=== PATIENT | female | born 1970 | race Caucasian/White ===

== ENCOUNTER 2024-02-18 17:54 | Observation (INO) | payer OTHER, SELFPAY ==
[2024-02-18 17:55] VITALS: BP 143/93; PULSE 67; RESP 18; TEMP 36.2; O2SAT 98; BMI 31.5
--- NOTE | 2024-02-18 18:20 | RAD_ITS ---
INDICATION: chest pain EXAMINATION/TECHNIQUE: X-RAY - XR Chest 1 View COMPARISON: No previous relevant examinations available for comparison.. FINDINGS: LIFE-SUPPORT AND LINES: 1. None HEART AND VESSELS: The cardiac silhouette, pulmonary vasculature have normal appearance. No evidence of congestive failure. LUNGS AND PLEURAL SPACES: Lungs are clear. No focal infiltrate, consolidation or effusions. No evidence of pneumothorax. No pulmonary mass is noted. MEDIASTINUM AND HILAR REGIONS: No masses adenopathy noted. No areas of calcification. Visualized upper airway is normal in position. BONY ELEMENTS: No acute bony changes noted. RAD/Chest 1 View (Portable) IMPRESSION: 1. No evidence of acute cardiopulmonary process Electronically Signed: Feliz Ji MD at 20:00 EDT ,
--- NOTE | 2024-02-18 18:20 | EKG12_ITS ---
Test Reason : CP Blood Pressure : / mmHG Vent. Rate : 064 BPM Atrial Rate : 064 BPM P-R Int : 168 ms QRS Dur : 080 ms QT Int : 432 ms P-R-T Axes : 063 053 046 degrees QTc Int : 445 ms Normal sinus rhythm with sinus arrhythmia Normal ECG Confirmed by Timur Barber ([id number]), newspaper editor managing CHIDI DON ([id number]) on 02/20/2024 6:31:19 AM Referred By: Confirmed By:Timur Barber
--- NOTE | 2024-02-18 18:21 | EDS_ITS ---
HPI History of Present Illness Chief Complaint: Chest Pain Informant: patient and spouse/S.O. Narrative Narrative: 53-year-old female presenting to the emergency room for the evaluation of chest pain. Patient notes over the past 2 weeks she has had an intermittent pain in the chest. She states that over the past couple days it is becoming more frequent. She states that sometimes it last for 30 seconds to minutes sometimes longer. It is woken her up a couple times during the night. She states that today she tried to go for a walk with her but did not feel that she could do the hill. She notes that her father had early onset coronary artery disease in his mid 50s. She states that she does not see a primary care doctor but has seen a doctor in the past that has told her that she had high cholesterol and MTFR mutation. Patient sometimes will take aspirin. She has felt this sensation radiated up to her jaw. She notes that she has been more short of breath with exertion recently. She denies any difficulty eating or drinking. PFSH PFSH Allergy/AdvReac Type Severity Reaction Status Date / Time Penicillins Allergy Hives Verified 02/18/24 17:59 sulfamethoxazole (From Allergy Anaphylaxis Verified 02/18/24 17:59 Bactrim) trimethoprim (From Bactrim) Allergy Anaphylaxis Verified 02/18/24 17:59 Social History Smoking Status: Never smoker ROS ROS ED ROS Narrative Fatigue Constitutional Constitutional ED: Denies chills, fever(s) or weight loss Eyes Eyes: Denies change in vision or diplopia ENT ENT ED: Denies ear pain, rhinorrhea or sore throat Cardiovascular Cardiovascular: Reports chest pain; Denies orthopnea, palpitations or racing heartbeat Respiratory/Chest Respiratory/Chest: Reports dyspnea on exertion; Denies cough, dyspnea or orthopnea Gastrointestinal Gastrointestinal: Denies abdominal pain, diarrhea, nausea or vomiting Genitourinary Genitourinary ED: Denies dysuria, hematuria or urinary frequency Musculoskeletal Musculoskeletal: Denies arthralgias or myalgias Integumentary Denies abscess or rash Neurologic Neurologic: Denies headache(s) or weakness Psychiatric Psychiatric: Denies anxiety, depression, suicidal ideation or suicidal thoughts Endocrine Endocrinology: Denies polydipsia, polyphagia or polyuria Allergic/Immunologic Allergic/Immunologic ED: Denies mouth swelling, tongue swelling or urticaria EXAM Physical Exam Const Vital Signs: 02/18/24 17:55 02/18/24 18:54 02/18/24 19:00 Temperature 97.1 F L Temperature Source Temporal Pulse Rate 67 63 65 Respiratory Rate 18 12 12 Blood Pressure 143/93 H 108/73 123/70 H Blood Pressure Mean 109 84 87 Pulse Ox 98 98 97 Oxygen Delivery Method Room Air Positive well nourished and well developed General Appearance ED: well developed HEENT Reports normocephalic, head/scalp atraumatic and moist mucous membranes Eyes PERRL and EOMs intact bilaterally Neck no lymphadenopathy, supple and no JVD Resp normal respiratory effort and clear to auscultation bilaterally Cardio regular rate, regular rhythm and no murmurs GI normal to inspection, nondistended, normoactive bowel sounds and non-tender Palpation: soft Back/Spine no CVA tenderness and normal ROM Extremity normal to inspection General Extremety ED: Negative for edema General Extremity: Negative for edema Neuro oriented x3 and CN's II-XII intact bilaterally Sensorium / Orientation: alert Motor Exam: strength 5/5 throughout Psych mental status grossly normal Mood & Affect: Negative for depressed or tearful Skin no rashes or lesions noted and no wounds Heart Score History: Moderately Suspicious ECG: Normal Age: >45 - <65 years Risk Factors: 1 or 2 Risk Factors Troponin: </= Normal Limit Score: 3 MDM MDM MDM Narrative Medical decision making narrative: Differential diagnosis includes acute coronary syndrome/unstable angina pleurisy chest wall pain esophagitis/GERD I doubt pulmonary embolism as it is not a constant symptom, Aortic dissection pleural effusion My independent interpretation of the chest x-ray is no acute process. EKG is in normal sinus rhythm without ischemia/injury. Troponin is 4. Hemoglobin 12.6 normal creatinine. Patient does not have a primary care doctor they can help us with expedited outpatient stress testing. Her heart score currently is 3. My recommendation is that we observe her tonight and obtain the cardiac stress testing tomorrow. Patient and her are comfortable with this plan. History & Record Review Discussion w/independent historian: Patient and Family Lab Data Attestation: I reviewed the patient's lab results. Labs: Laboratory Results - last 24 hr 02/18/24 18:46 WBC 6.0 RBC 4.30 Hgb 12.6 Hct 38.7 MCV 90.0 MCH 29.3 MCHC 32.6 RDW Std Deviation 43.3 RDW Coeff of Li 13.1 Plt Count 281 MPV 9.2 Immature Gran % (Auto) 0.300 Neut % (Auto) 53.9 Lymph % (Auto) 36.8 [place] % (Auto) 7.4 Eos % (Auto) 1.3 Baso % (Auto) 0.3 Absolute Neuts (auto) 3.2 Absolute Lymphs (auto) 2.19 Nucleated RBC % 0 Sodium 139 Potassium 4.1 Chloride 106 Carbon Dioxide 28.0 Anion Gap 5 BUN 14 Creatinine 0.76 Estim Creat Clear Calc 88.11 Est GFR (MDRD) Af Amer 103 Est GFR (MDRD) Non-Af 85 BUN/Creatinine Ratio 18.4 Glucose 105 Calcium 9.4 Troponin I High Sens 4 EKG Initial EKG: Attestation: I personally reviewed and interpreted this EKG as follows: Comments: Normal sinus rhythm ventricular rate of 64 bpm Management Discussion w/another healthcare provider: Hospitalist Discharge Plan Triage Chief Complaint: Chest Pain ED Provider: Matthew Pacheco Dx/Rx/DC Orders Primary Care Provider: Venessa Morales Referrals: Venessa Morales MD [Primary Care Provider] - Print Language: Turkish
[2024-02-18] MEDS: Aspirin 81 MG TAB.CHEW 324 MG PO (18:28)
[2024-02-18 18:54] VITALS: BP 108/73; PULSE 63; RESP 12; O2SAT 98
[2024-02-18 18:56] LABS: Absolute Lymphocyte Count 2.19 X10^3/uL (0.83-4.51); Absolute Neutrophil Count 3.2 X10^3/uL (2.0-7.7); Basophil# 0.02 X10^3/uL; Basophil% 0.3 % (0-1); Eosinophil# 0.08 X10^3/uL; Eosinophils% 1.3 % (0-5); Hematocrit 38.7 % (37-47); Hemoglobin 12.6 g/dL (12.0-15.0); Lymphocyte # 2.19 X10^3/ul (0.83-4.51); Lymphocyte % 36.8 % (19-41); Mean Corp Hgb Conc 32.6 g/dL (32-36); Mean Corpuscular Hgb 29.3 pg (27.0-32.0); Mean Platelet Vol. 9.2 fl (6.2-12.0); Monocyte# 0.44 X10^3/uL; Monocyte% 7.4 % (0-10); NRBC Flagged by Analyzer 0 % (0-5); Neutrophil % 53.9 % (47-70); Platelet Count 281 K/mm3 (150-450); RBC Distribution Width CV 13.1 % (11.6-14.6); RBC Distribution Width SD 43.3 fl (35.1-43.9)
[2024-02-18 19:00] VITALS: BP 123/70; PULSE 65; RESP 12; O2SAT 97
[2024-02-18 19:19] LABS: Anion Gap 5 (5-15); BUN 14 mg/dL (7-18); BUN/Creat Ratio 18.4 RATIO (10-20); Calcium,Total 9.4 mg/dL (8.5-10.1); Chloride 106 mmol/L (98-107); Creatinine, Serum 0.76 mg/dL (0.55-1.02); EST Glomerular Filtration Rate 85 mL/min (>60); Est Glom Filt Rate - Afr Amer 103 mL/min (>60); Estimated Creatinine Clearance 88.11 ml/min; Glucose 105 mg/dL (74-106); Potassium 4.1 mmol/L (3.5-5.1); Sodium Level 139 mmol/L (136-145); Troponin-I HS (w/2H Reflex) 4 pg/mL (3.0-54.0)
[2024-02-18 19:47] VITALS: BP 116/95; PULSE 63; RESP 14; TEMP 36.9; O2SAT 97
--- NOTE | 2024-02-18 19:58 | HP.PCM.HOS_ITS ---
HPI - General General Date of Service: 02/18/24 Chief Complaint: Chest Pain. HPI Narrative FREDDIE BLACKMON, is a 53 F with a past medical history of obesity; with BMI of 31.5 this admission, history of hyperlipidemia, history of MTHFR mutation, listed allergy to PCN (hives) and Bactrim (anaphylaxis), positive family history of premature CAD; in her father who had a CABG in his 50's and history of migraine headaches who presents to [facility] ER complaining of chest pain. Mrs. Blackmon reports her symptoms began approximately two weeks prior to admission with chest pain that begins at rest, ~3/10, substernal, pressure-like, lasting 30 seconds to ~5 minutes, radiating up into her jaw and was initially intermittent - but becoming more frequent over the past few days. She also admits to being woken up in the middle of the night with chest pain a few times. Earlier today she tried to go for a walk with her but she felt like she could not exert herself walking up a small hill because of concerns about triggering a return of her chest pain as she has also begun to have easier BASS that is new and concerning. She does admit to taking ECASA but it did not help with her symptoms. She does not have a PCP at this time. She denies associated fever, chills, nausea, vomiting, diaphoresis, palpitations, dysphagia, headache, recent trauma, recent illness or recent medication changes. In the ER she was noted to have a normal troponin and a nonspecific EKG and she was then admitted to the PCU under observation status for ongoing care for a stay that is expected to be less than 48 hours. PFSH Allergy/AdvReac Type Severity Reaction Status Date / Time Penicillins Allergy Hives Verified 02/18/24 17:59 sulfamethoxazole (From Allergy Anaphylaxis Verified 02/18/24 17:59 Bactrim) trimethoprim (From Bactrim) Allergy Anaphylaxis Verified 02/18/24 17:59 Social History Smoking Status: Never smoker ROS ROS Narrative Review of Systems: General: Patient denies fever or chills. HENT: Denies headache, denies stuffy nose, denies sore throat EYES: Denies changes in vision or discharge from eyes. Resp: Denies cough, denies shortness of breath Cardiac: Patient admits to chest pain radiating up into her Right jaw as per HPI. GI: Denies abdominal pain, denies changes in bowel, denies nausea or vomiting. : Denies changes in urination Extremity: Denies swelling Musculoskeletal: Feels somewhat generally weak and unwell but she denies arthralgias and myalgias. Neuro: Patient denies headache, paresthesias or focal neurologic deficits. Heme: Denies any bleeding or bruising Skin: Denies rashes Psychiatric: No complaints voiced related to uncontrolled depression or anxiety. Endocrine: No polyuria, polydipsia or polyphagia. The rest of the 14 point ROS was negative except for positives in HPI. Vital Signs Vital Signs Vital Signs: 02/18/24 17:55 02/18/24 18:54 02/18/24 19:00 Temperature 97.1 F L Temperature Source Temporal Pulse Rate 67 63 65 Respiratory Rate 18 12 12 Blood Pressure 143/93 H 108/73 123/70 H Blood Pressure Mean 109 84 87 Pulse Ox 98 98 97 Oxygen Delivery Method Room Air 02/18/24 19:47 Temperature 98.5 F Temperature Source Pulse Rate 63 Respiratory Rate 14 Blood Pressure 116/95 H Blood Pressure Mean 102 Pulse Ox 97 Oxygen Delivery Method Weight Weight: 178 lb Body Mass Index (BMI) 31.5 Physical Exam Const alert, oriented x3, no apparent distress, average body habitus and healthy appearing General Appearance: cooperative HEENT normocephalic, head/scalp atraumatic, hearing grossly normal bilaterally and moist oral mucous membranes Eyes PERRL and EOMs intact bilaterally Neck no lymphadenopathy and supple Resp normal respiratory effort, no retractions, no use of accessory muscles and clear to auscultation bilaterally Cardio regular rate and regular rhythm GI normal to inspection, nondistended, normoactive bowel sounds, soft to palpation, non-tender and non-distended GI Narrative: Obese. Extremity normal to inspection, full ROM and no clubbing, cyanosis or edema Skin Skin Narrative: Patient has no evidence of jaundice, rash or abscess. Neuro oriented x3, CN's II-XII intact bilaterally, moves all extremities and no focal motor deficits Sensorium / Orientation: awake, alert, oriented to person, oriented to place and oriented to time Speech: speech normal Psych affect normal Results Medical Records Data Attestation: I reviewed the patient's medical records Lab / Micro Data Attestation: I reviewed the patient's lab results. 02/18/24 18:46 02/18/24 18:46 Labs: Laboratory Results - last 24 hr 02/18/24 18:46: WBC 6.0, RBC 4.30, Hgb 12.6, Hct 38.7, MCV 90.0, MCH 29.3, MCHC 32.6, RDW Std Deviation 43.3, RDW Coeff of Li 13.1, Plt Count 281, MPV 9.2, Immature Gran % (Auto) 0.300, Neut % (Auto) 53.9, Lymph % (Auto) 36.8, [place] % (Auto) 7.4, Eos % (Auto) 1.3, Baso % (Auto) 0.3, Absolute Neuts (auto) 3.2, Absolute Lymphs (auto) 2.19, Nucleated RBC % 0, Sodium 139, Potassium 4.1, Chloride 106, Carbon Dioxide 28.0, Anion Gap 5, BUN 14, Creatinine 0.76, Estim Creat Clear Calc 88.11, Est GFR (MDRD) Af Amer 103, Est GFR (MDRD) Non-Af 85, BUN/Creatinine Ratio 18.4, Glucose 105, Calcium 9.4, Troponin I High Sens 4 Assessment & Plan Assessment/Plan (1) Chest pain: QUALIFIERS: Chest pain type: unspecified Qualified Code(s): R07.9 - Chest pain, unspecified (2) Obesity (BMI 30.0-34.9): (3) Hyperlipidemia: QUALIFIERS: Hyperlipidemia type: unspecified Qualified Code(s): E 78.5 - Hyperlipidemia, unspecified (4) MTHFR gene mutation: (5) History of migraine: PLAN: Plan 1. Chest Pain in the setting of a known family history of premature CAD; in her father who had a CABG in his 50's - Admit to PCU under observation status. Serialize troponin. Check echocardiogram to evaluate LVEF. Check Lexiscan NST in the AM to evaluate for ischemia. Continue ECASA and prn SL NTG. Give Morphine IV prn for severe (level 6-10/10) pain. Give Tylenol prn for [id number] (level 1-5/10) pain or fever. 2. Obesity; with BMI of 31.5 this admission complicating #1 - Weight loss will be recommended. Check TSH. 3. History of hyperlipidemia - Check Lipid Profile. 4. History of MTFR mutation - Noted. 5. Listed allergy to PCN (hives) and Bactrim (anaphylaxis) - Noted. We will avoid these classses of agents. 6. History of migraine headaches - Stable with no complaints of headache at this time. 7. DVT prophylaxis - Lovenox 40 mg sq daily. Total time: Approximately 40 minutes. Charges/Coding Visit Charges Inpatient E&M: 71546 Init Hosp L1
[2024-02-18 20:00] VITALS: BP 116/95; PULSE 62; RESP 15; O2SAT 98
[2024-02-18 20:53] LABS: Reflex Troponin-HS? (from REC) Y
[2024-02-18 21:04] VITALS: BMI 30.9
[2024-02-18] MEDS: 0.9% Normal Saline (1000mL) 1,000 ML 70 ML IV (21:27)
[2024-02-18 21:30] VITALS: BP 120/71; PULSE 61; RESP 16; TEMP 36; O2SAT 99
[2024-02-18 21:38] LABS: Troponin-I HS 4 pg/mL (3.0-54.0)
--- NOTE | 2024-02-18 23:09 | EKG12_ITS ---
Test Reason : cp Blood Pressure : / mmHG Vent. Rate : 069 BPM Atrial Rate : 069 BPM P-R Int : 162 ms QRS Dur : 082 ms QT Int : 440 ms P-R-T Axes : 040 017 027 degrees QTc Int : 471 ms Normal sinus rhythm Normal ECG When compared with ECG of 18-FEB-2024 18:28, MANUAL COMPARISON REQUIRED, DATA IS UNCONFIRMED Confirmed by COLTEN RANDHAWA, REBEKAH ([id number]), film editor AMAIRANI TERRELL ([id number]) on 02/20/2024 6:09:30 AM Referred By: Jia Confirmed By:REBEKAH ABEL MD
[2024-02-18 23:53] LABS: Troponin-I HS 4 pg/mL (3.0-54.0)
[2024-02-19 03:45] VITALS: BP 94/62; PULSE 69; RESP 16; TEMP 36.3; O2SAT 97
--- NOTE | 2024-02-19 05:55 | EKG12_ITS ---
Test Reason : PRE OP Blood Pressure : / mmHG Vent. Rate : 082 BPM Atrial Rate : 082 BPM P-R Int : 174 ms QRS Dur : 078 ms QT Int : 420 ms P-R-T Axes : 057 031 052 degrees QTc Int : 490 ms Normal sinus rhythm Prolonged QT Abnormal ECG When compared with ECG of 18-FEB-2024 22:24, MANUAL COMPARISON REQUIRED, DATA IS UNCONFIRMED Confirmed by COLTEN RANDHAWA, REBEKAH ([id number]), editor producer AMAIRANI TERRELL ([id number]) on 02/20/2024 6:10:56 AM Referred By: Confirmed By:REBEKAH ABEL MD
[2024-02-19 06:02] LABS: Absolute Lymphocyte Count 2.16 X10^3/uL (0.83-4.51); Absolute Neutrophil Count 2.8 X10^3/uL (2.0-7.7); Basophil# 0.02 X10^3/uL; Basophil% 0.4 % (0-1); Eosinophil# 0.12 X10^3/uL; Eosinophils% 2.2 % (0-5); Hematocrit 37.7 % (37-47); Hemoglobin 12.2 g/dL (12.0-15.0); Lymphocyte # 2.16 X10^3/ul (0.83-4.51); Lymphocyte % 38.8 % (19-41); Mean Corp Hgb Conc 32.4 g/dL (32-36); Mean Corpuscular Hgb 29.5 pg (27.0-32.0); Mean Corpuscular Volume 91.3 fL (81-99); Mean Platelet Vol. 9.6 fl (6.2-12.0); Monocyte# 0.43 X10^3/uL; Monocyte% 7.7 % (0-10); NRBC Flagged by Analyzer 0 % (0-5); Neutrophil # 2.83 X10^3/uL (2.7-7.7); Neutrophil % 50.7 % (47-70); Platelet Count 280 K/mm3 (150-450); RBC Distribution Width CV 13.1 % (11.6-14.6); RBC Distribution Width SD 43.4 fl (35.1-43.9); Red Blood Count 4.13 M/mm3 (4.2-5.4); White Blood Count 5.6 K/mm3 (4.4-11.0)
[2024-02-19] MEDS: Aspirin E.C. 81 MG Tablet PO (06:31)
[2024-02-19 06:32] LABS: AST(SGOT) 9 U/L (15-37); Alanine Aminotransfer ALT/SGPT 21 U/L (13-56); Albumin, Serum 3.1 g/dL (3.2-5.0); Alkaline Phosphatase 54 U/L (45-117); Anion Gap 5 (5-15); BUN 13 mg/dL (7-18); BUN/Creat Ratio 21.6 RATIO (10-20); Calcium,Total 8.3 mg/dL (8.5-10.1); Chloride 106 mmol/L (98-107); Cholesterol 230 mg/dL (200); EST Glomerular Filtration Rate 111 mL/min (>60); Est Glom Filt Rate - Afr Amer 135 mL/min (>60); Estimated Creatinine Clearance 110.46 ml/min; Globulin 3.1 g/dL (2.2-4.2); Glucose 90 mg/dL (74-106); High Density Lipoprotein 68 mg/dL; Magnesium 1.8 mg/dL (1.6-2.6); Phosphorus 3.9 mg/dL (2.5-4.9); Potassium 3.5 mmol/L (3.5-5.1); Protein, Total 6.2 g/dL (6.4-8.2); Sodium Level 137 mmol/L (136-145); Triglycerides 110 mg/dL; Very Low Density Lipoprotein 22 mg/dL (5-40)
[2024-02-19 08:02] VITALS: BMI 31.4
[2024-02-19 08:35] LABS: T4 Free Direct 0.95 ng/dL (0.76-1.46)
[2024-02-19 08:45] VITALS: BP 111/74; PULSE 72; RESP 15; TEMP 36; O2SAT 97
[2024-02-19] MEDS: Acetaminophen 325 MG Tablet 650 MG PO (12:57)
--- NOTE | 2024-02-19 12:58 | STRESSREP ---
Stress Test Report Exercise myocardial perfusion stress test. 53-year-old lady with a history of chest pain Stress protocol: Resting EKG demonstrates normal sinus rhythm with a rate of 70 bpm resting blood pressure is 120/72 mmHg. The patient exercised according to the regular Gregorio protocol for a total duration of 6 minutes attaining a maximum heart rate of 151 bpm which was 89% of maximum predicted heart rate; the maximum workload was 7 metabolic equivalents. At rest there were no ST or T wave changes noted to suggest ischemia and at peak exercise upsloping ST changes only were noted which did not meet the criteria for ischemia. No clinical angina was noted the test was terminated due to the target heart rate being achieved/fatigue. The peak blood pressure was 148/72 mmHg. Rate-pressure product was 15,900. Myocardial perfusion protocol. 12 mCi of technetium 99m sestamibi was injected at rest. The patient exercised according to regular Gregorio protocol for total duration of 6-minute and at peak exercise 34.6 mCi of technetium 99m sestamibi was injected stress images were obtained stress and rest images were reconstructed in comparing the short axis vertical long and horizontal long axis. Gated images were also obtained. Perfusion SPECT analysis: Review of the stress images demonstrate normal uptake of tracer noted in all areas of the myocardium. The resting images similarly demonstrate normal uptake of tracer noted in all areas of the myocardium. No areas of reversibility are noted to suggest ischemia no previous infarct was noted. Gated SPECT analysis: The gated ejection fraction is 79%. Conclusion: Normal exercise myocardial perfusion stress test at a moderate workload Preserved ejection fraction.
--- NOTE | 2024-02-19 13:30 | CHAPLAIN ---
Type of Pastoral Visit _x__ Initial Visit ___ Follow-up Visit ___ On-call Visit ___ General Patient Visit ___ Spiritual Assessment ___ Family Conference ___ Bereavement ___ Rapid Response ___ Code Blue ___ Other (describe below) Pastoral Care Referral From _x__ Patient ___ Family ___ Nurse ___ Physician ___ Pension Adviser ___ Export Freight Clerk ___ Other (describe below) Sacrament/Intervention _x__ Active listening ___ Anointing ___ Mu-Ism ___ Bereavement ___ Communion _x__ Mone exploration ___ ___ Life review _x__ Prayer ___ Reconciliation ___ Sacrament of Sick _x__ Supportive presence ___ Wedding ___ Other (describe below) Pastoral Comments patient speaks of her reason for coming to the hospital as her family requested; pt states her concern about the cost of the tests; pt also reveals a pressing concern for her in that her sister has a new diagnosis that is very serious; pt asks for prayer for her sister and her family; pt affirms her strong mone in God and in prayer; pt expresses thanks for the spiritual care support
[2024-02-19 14:45] VITALS: BP 115/76; PULSE 70; RESP 15; TEMP 36.2; O2SAT 97
--- NOTE | 2024-02-19 16:01 | DCINST_ITS ---
Discharge Instructions Diet Discharge Diet: Low fat / Low cholesterol Activity Discharge Activity: Return to Normal Activity Dressing / Incision Call your doctor if you observe: Fever of 101 or Higher, Shortness of breath, Dizziness, Fainting spells, Swelling in the ankles, Chest pain and Increased palpitations (irregular heartbeat) Follow Up Care Test Results: Test results from this visit will be discussed in further detail at your follow- up appointment, if applicable. Discharge Plan Admission Admit Date/Time: 02/18/24 20:08 Attending Provider: Angel Cornejo Primary Care Provider: Venessa Moralse Consulting Providers: Damien Pardo Discharge Orders/Prescriptions Prescriptions: New atorvastatin [Lipitor] 40 mg tablet 40 mg PO QHS 30 Days Qty: 30 0RF Referrals / Follow Up: Venessa Morales MD [Primary Care Provider] - Within 1 Week Disposition Disposition (needs filled in before D/C Order can be placed): Home, Self Care
--- NOTE | 2024-02-19 16:06 | DS.PCM_ITS ---
Providers Date of Admission: 02/18/24 Primary Care Physician: Dr. Venessa Morales MD Reason For Visit: CHEST PAIN Diagnosis Discharge Diagnosis (1) Chest pain: Status: Acute Code(s): R07.9 - Chest pain, unspecified Qualifiers: Chest pain type: unspecified Qualified Code(s): R07.9 - Chest pain, unspecified (2) Obesity (BMI 30.0-34.9): Status: Acute Code(s): E66.811 - Obesity, class 1 (3) Hyperlipidemia: Status: Acute Code(s): E78.5 - Hyperlipidemia, unspecified Qualifiers: Hyperlipidemia type: unspecified Qualified Code(s): E78.5 - Hyperlipidemia, unspecified (4) MTHFR gene mutation: Status: Acute Code(s): Z15.89 - Genetic susceptibility to other disease (5) History of migraine: Status: Acute Code(s): Z86.69 - Personal history of other diseases of the nervous system and sense organs Medications at Discharge Home Medications atorvastatin 40 mg tablet (Lipitor) 40 mg PO QHS 30 days #30 tabs 02/19/24 Hospital Course Operations None Procedures Nuclear stress test Summary of Care Provided Minutes Spent on Discharge: 33 Hospital Course: Per HPI: FREDDIE BLACKMON, is a 53 F with a past medical history of obesity; with BMI of 31.5 this admission, history of hyperlipidemia, history of MTHFR mutation, listed allergy to PCN (hives) and Bactrim (anaphylaxis), positive family history of premature CAD; in her father who had a CABG in his 50's and history of migraine headaches who presents to [facility] ER complaining of chest pain. Mrs. Blackmon reports her symptoms began approximately two weeks prior to admission with chest pain that begins at rest, ~3/10, substernal, pressure-like, lasting 30 seconds to ~5 minutes, radiating up into her jaw and was initially intermittent - but becoming more frequent over the past few days. She also admits to being woken up in the middle of the night with chest pain a few times. Earlier today she tried to go for a walk with her but she felt like she could not exert herself walking up a small hill because of concerns about triggering a return of her chest pain as she has also begun to have easier BASS that is new and concerning. She does admit to taking ECASA but it did not help with her symptoms. She does not have a PCP at this time. She denies associated fever, chills, nausea, vomiting, diaphoresis, palpitations, dysphagia, headache, recent trauma, recent illness or recent medication changes. In the ER she was noted to have a normal troponin and a nonspecific EKG and she was then admitted to the PCU under observation status for ongoing care for a stay that is expected to be less than 48 hours. Hospital Course: 1. Chest pain?53-year-old female presented to the hospital with chest pain, she does have a history of MTHFR gene mutation as well as a father had a CABG in his 50s so she was concerned about a cardiac origin. Troponins were unremarkable and and EKGs were nonischemic. Stress test was normal did not demonstrate any type of ischemia. I discussed with her the plan for discharge today she expressed understanding the risk benefits of going home and would like to go home today. She does have an elevated LDLs we did discuss the role of Lipitor in her care, she would like for me to order it but she wants to discuss it with her family and PCP first. We discussed the role of diet and exercise and improving cardiovascular outcomes especially in the setting of MTHFR gene mutation. I recommend she follow-up with her PCP in 3 to 5 days Physical Exam Narrative General: Alert, Oriented x3, Cooperative, No apparent distress HEENT: Atraumatic, PERRLA, EOMI, Normocephalic Oral: Moist Mucosa Neck: Supple, No JVD Lungs: Clear to auscultation, Normal air movement, No rhonchi, No wheeze, No rales Cardiovascular: Regular rate, Regular Rhythm, Normal S1, Normal S2, No murmurs Abdomen: Soft, Non Tender, Non-Distended, No Hepato-splenomegaly Extremities: No edema, Capillary Refill Less than 3 Seconds Skin: No rashes, No breakdown Musculoskeletal: No Tenderness to Palpation of Joints or Extremities Neurological: No focal neurological deficits, Motor Exam 5/5 strength throughout, Sensory exam intact to light touch and pain Psych/Mental Status: Normal Affect, Appropriate Weight / BMI Weight Weight: 177 lb 0.499 oz Body Mass Index (BMI) 31.4 ABG / Lab / Microbiology Data 02/19/24 05:15 02/19/24 05:15 Laboratory: Laboratory Results - last 24 hr 02/18/24 18:46: WBC 6.0, RBC 4.30, Hgb 12.6, Hct 38.7, MCV 90.0, MCH 29.3, MCHC 32.6, RDW Std Deviation 43.3, RDW Coeff of Li 13.1, Plt Count 281, MPV 9.2, Immature Gran % (Auto) 0.300, Neut % (Auto) 53.9, Lymph % (Auto) 36.8, [place] % (Auto) 7.4, Eos % (Auto) 1.3, Baso % (Auto) 0.3, Absolute Neuts (auto) 3.2, Absolute Lymphs (auto) 2.19, Nucleated RBC % 0, Sodium 139, Potassium 4.1, Chloride 106, Carbon Dioxide 28.0, Anion Gap 5, BUN 14, Creatinine 0.76, Estim Creat Clear Calc 88.11, Est GFR (MDRD) Af Amer 103, Est GFR (MDRD) Non-Af 85, BUN/Creatinine Ratio 18.4, Glucose 105, Calcium 9.4, Troponin I High Sens 4 02/18/24 21:12: Troponin I High Sens 4 02/18/24 23:23: Troponin I High Sens 4 02/19/24 05:15: WBC 5.6, RBC 4.13 L, Hgb 12.2, Hct 37.7, MCV 91.3, MCH 29.5, MCHC 32.4, RDW Std Deviation 43.4, RDW Coeff of Li 13.1, Plt Count 280, MPV 9.6, Immature Gran % (Auto) 0.200, Neut % (Auto) 50.7, Lymph % (Auto) 38.8, [place] % (Auto) 7.7, Eos % (Auto) 2.2, Baso % (Auto) 0.4, Absolute Neuts (auto) 2.8, Absolute Lymphs (auto) 2.16, Nucleated RBC % 0, Sodium 137, Potassium 3.5, Chloride 106, Carbon Dioxide 26.0, Anion Gap 5, BUN 13, Creatinine 0.60, Estim Creat Clear Calc 110.46, Est GFR (MDRD) Af Amer 135, Est GFR (MDRD) Non-Af 111, BUN/Creatinine Ratio 21.6 H, Glucose 90, Calcium 8.3 L, Phosphorus 3.9, Magnesium 1.8, Total Bilirubin 0.40, AST 9 L, ALT 21, Alkaline Phosphatase 54, T otal Protein 6.2 L, Albumin 3.1 L, Globulin 3.1, Albumin/Globulin Ratio 1.0, Triglycerides 110, Cholesterol 230 H, LDL Cholesterol 140 H, VLDL Cholesterol 22, HDL Cholesterol 68, TSH 3.810 H, Free T4 0.95 Radiography Diagnostic Testing: Radiology Impression Chest X-Ray 02/18/24 18:20 IMPRESSION: 1. No evidence of acute cardiopulmonary process Electronically Signed: Feliz Ji MD at 20:00 EDT , D/C Instructions Discharge Diet: Low fat / Low cholesterol Call your doctor if you observe: Fever of 101 or Higher, Shortness of breath, Dizziness, Fainting spells, Swelling in the ankles, Chest pain and Increased palpitations (irregular heartbeat) Meaningful Use Info Meaningful Use Meaningful Use Diagnoses (Choose all that apply): None applicable Ischemic Stroke Statin Dosing Therapy Reference: STATIN DOSE THERAPY REFERENCE: * Patients > 75 years receive moderate or high dose statin therapy. * Patients 75 years or YOUNGER should receive HIGH intensity statin dose unless contraindicated. You will be required to document reason for non-treatment if statin daily dose does not meet guidelines. HIGH DOSE STATIN THERAPY DAILY Atorvastatin > than or = to 40 mg Rosuvastatin > than or = to 20 mg Amlodipine + Atorvastatin > than or = to 2.5/40 mg Ezetimibe + Simvastatin 10/80 mg Simvastatin 80mg Discharge Plan Admission Admit Date/Time: 02/18/24 20:08 Attending Provider: Angel Cornejo Primary Care Provider: Venessa Morales Consulting Providers: Damien Pardo Discharge Orders/Prescriptions Prescriptions: New atorvastatin [Lipitor] 40 mg tablet 40 mg PO QHS 30 Days Qty: 30 0RF Referrals / Follow Up: Venessa Morales MD [Primary Care Provider] - Within 1 Week Disposition Disposition (needs filled in before D/C Order can be placed): Home, Self Care Charges/Coding Visit Charges Inpatient E&M: 91433 Disch Hosp >30min
--- NOTE | 2024-02-19 16:08 | CASEMGMT ---
Patient has order for discharge. RN CM in to discuss needs at discharge. Patient denies needs or help at discharge. Patient had no further questions or concerns.
== END 2024-02-19 17:30 | disposition home or self-care (01) ==
LOC: ED 19:47 → PCU 20:41
PROVIDERS: Admitting Provider Internal Medicine; Emergency Provider Emergency Medicine; PCP Internal Medicine; Visit Provider Family Medicine
DX: R07.89 Other chest pain (principal); E78.5 Hyperlipidemia, unspecified; Z68.31 Body mass index [BMI] 31.0-31.9, adult; E66.811 Obesity, class 1; Z15.89 Genetic susceptibility to other disease; Z82.49 Family history of ischemic heart disease and other diseases of the circulatory system
CPT/HCPCS: 36415; 71045; 78452; 80048; 80053; 80061; 83735; 84100; 84439; 84443; 84484; 85025; 93005; 93017; 99221; 99285; A9500; J7030; A4216; G0378